=== PATIENT | female | born 1950 | race Caucasian/White ===

== ENCOUNTER 2020-05-07 09:21 | Outpatient (REF) | payer OTHER, SELFPAY ==
--- NOTE | 2020-05-18 11:29 | XR_ITS ---
EXAMINATION: XR PELVIS CLINICAL INFORMATION: Pain COMPARISON: 04/04/2019 TECHNIQUE: Pelvis, AP view FINDINGS: The osseous pelvic ring is intact. Alignment is normal at the pubic symphysis, hips and sacroiliac joints. No focal lytic or osteoblastic lesion. The components of the noncemented right total hip arthroplasty are in stable position. There is approximately 60 degrees of lateral version of the acetabular cup, unchanged compared to 04/04/2019. The femoral head prosthesis is well centered within the acetabular cup. No abnormal lucency or fracture around the femoral component. At the left hip, there is chronic loss of superior joint space, subarticular sclerosis, subarticular cystic change, osteophyte formation and mild cortical buttressing of the medial femoral neck. XR/XR pelvis 1-2V IMPRESSION: * The components of the right total hip arthroplasty are in stable position compared to 04/04/2019. No periprosthetic fracture. No osteolysis around the hardware. * Chronic [id number] osteoarthritis of the left hip.
== END 2020-05-07 09:22 | disposition home or self-care (01) ==
LOC: HO.HOSX 09:21
PROVIDERS: Visit Provider Orthopaedic Surgery
DX: Z13.89 Encounter for screening for other disorder (principal)

== ENCOUNTER → 2020-05-18 11:09 | Outpatient (BNVA) | payer OTHER, SELFPAY | PROVIDERS: Visit Provider Orthopaedic Surgery | DX: M16.12 Unilateral primary osteoarthritis, left hip (principal) | CPT/HCPCS: 72170; 99212 ==

== ENCOUNTER → 2020-07-20 12:48 | Outpatient (BNVA) | payer OTHER, SELFPAY | PROVIDERS: Visit Provider Orthopaedic Surgery ==

== ENCOUNTER → 2020-08-13 09:14 | Outpatient (BNVA) | payer OTHER, SELFPAY | PROVIDERS: Visit Provider Physician Assistant | DX: M16.12 Unilateral primary osteoarthritis, left hip (principal) | CPT/HCPCS: 99212 ==

== ENCOUNTER 2020-08-18 06:03 | Inpatient (IN) | payer OTHER, SELFPAY ==
--- NOTE | 2020-08-14 12:17 | P.CONAN_ITS ---
Documented by User: Alesia Solorio 08/17/20 09:31 HPI - Anesthesia Eval Consult details Narrative: 70yo F for Left Hip Total Replacement Anxiety about entering OR - requesting midaz s/p R ANKIT with [facility]T 7 03/2018 PCP cleared Pending: T&S EKG PMFSH Active Problems Active Problems: All Active Problems (Updated 08/13/20 @ 10:21 by Francisca Do PA-C) Osteoarthritis of left hip (Acute) Past Medical History Medical History Anxiety Arthritis Depressive disorder Low back pain Lyme disease Family History Family history of problems with anesthesia: No Surgical History Surgical History History of cataract removal with insertion of prosthetic lens History of tooth extraction History of total right hip arthroplasty (~03/27/18) History of Problems with Anesthesia: No Social History Social History Are you a primary manager long term care to a significant other at home: No Do you presently have visiting nurse or other home services: No Smoking Status: Never smoker Use of substances other than those prescribed or required for medical reasons: No Have you been hit, kicked, punched, or otherwise hurt by someone within the past year? If so, by whom?: No Spiritual Healthcare Practices: none Mormonism Healthcare Practices: prayer Cultural Healthcare Practices: none Are you DNR?: No Advance Directives: No Advance Directives Information Provided: No Advance Directives on File: No Recently lost weight without trying: No Narrative Narrative: No recent illness Acitivity limited to pain - no CP/SOB at rest Meds Allergies Allergy/AdvReac Type Severity Reaction Status Date / Time latex [LATEX] Allergy Unknown RASH Verified 08/14/20 12:15 Home Medications Medication Instructions Recorded Confirmed Last Taken Type amitriptyline 50 mg tablet 50 mg PO BEDTIME 07/20/20 08/14/20 Unknown History diazepam 5 mg tablet 5 mg PO DAILY PRN 07/20/20 08/14/20 08/18/20 History paroxetine HCl 20 mg tablet 20 mg PO DAILY 07/20/20 08/14/20 08/18/20 History Exam Exam Date and Time: August 14, 2020 121 Pertinent Lab Results Pertinent Lab Results: Lab Results 08/14/20 08/14/20 08/14/20 Range/Units 13:35 13:35 13:35 WBC 9.3 (4.8-10.8) X10*3/uL RBC 4.67 (4.20-5.50) X10*6/uL Hgb 13.6 (12.0-16.0) g/dl Hct 41.6 (37-47) % MCV 89.1 (80-98) fL MCH 29.1 (27.0-33.0) pg MCHC 32.7 (31.0-35.0) g/dl RDW 13.2 (11.0-16.0) % Plt Count 290 (160-400) X10*3/uL MPV 10.4 (9.4-12.3) fL Immature Gran % (Auto) 0.3 (0.0-0.4) % Neut % (Auto) 69.7 (45-73) % Lymph % (Auto) 20.8 (20-40) % [place] % (Auto) 7.7 (2-11) % Eos % (Auto) 1.1 (0-4) % Baso % (Auto) 0.4 (0-2) % Lymph # (Auto) 1.9 (1.2-4.9) X10*3/uL [place] # (Auto) 0.7 (0.1-1.2) X10*3/uL Eos # (Auto) 0.1 (0.0-0.4) X10*3/uL Baso # (Auto) 0.0 (0.0-0.2) X10*3/uL Abs Immat Gran (auto) 0.03 (0.00-0.03) X10*3/uL Absolute Neuts (auto) 6.5 (2.0-8.3) X10*3/uL Absolute Nucleated RBC 0.000 (0.0-0.012) X10*3/uL Nucleated RBC % (auto) 0.0 (0.0-0.2) /100WBC Sodium 138 (135-145) mmol/L Potassium 4.4 (3.3-5.1) mmol/L Chloride 105 (96-108) mmol/L Carbon Dioxide 24 (22-29) mmol/L Anion Gap 13 (12-20) BUN 17 H (9-16) mg/dL Creatinine 0.79 (0.5-1.4) mg/dL Estim Creat Clear Calc 78.1 Estimated GFR > 60 Random Glucose 99 (60-115) mg/dL Calcium 10.2 (8.4-10.2) mg/dL Nasal Screen MRSA (PCR) (Negative) Nasal S. aureus Screen (Negative) Nasal MRSA/S.aureus Interp Blood Type O Positive Antibody Screen NEGATIVE 08/14/20 Range/Units Unknown WBC (4.8-10.8) X10*3/uL RBC (4.20-5.50) X10*6/uL Hgb (12.0-16.0) g/dl Hct (37-47) % MCV (80-98) fL MCH (27.0-33.0) pg MCHC (31.0-35.0) g/dl RDW (11.0-16.0) % Plt Count (160-400) X10*3/uL MPV (9.4-12.3) fL Immature Gran % (Auto) (0.0-0.4) % Neut % (Auto) (45-73) % Lymph % (Auto) (20-40) % [place] % (Auto) (2-11) % Eos % (Auto) (0-4) % Baso % (Auto) (0-2) % Lymph # (Auto) (1.2-4.9) X10*3/uL [place] # (Auto) (0.1-1.2) X10*3/uL Eos # (Auto) (0.0-0.4) X10*3/uL Baso # (Auto) (0.0-0.2) X10*3/uL Abs Immat Gran (auto) (0.00-0.03) X10*3/uL Absolute Neuts (auto) (2.0-8.3) X10*3/uL Absolute Nucleated RBC (0.0-0.012) X10*3/uL Nucleated RBC % (auto) (0.0-0.2) /100WBC Sodium (135-145) mmol/L Potassium (3.3-5.1) mmol/L Chloride (96-108) mmol/L Carbon Dioxide (22-29) mmol/L Anion Gap (12-20) BUN (9-16) mg/dL Creatinine (0.5-1.4) mg/dL Estim Creat Clear Calc Estimated GFR Random Glucose (60-115) mg/dL Calcium (8.4-10.2) mg/dL Nasal Screen MRSA (PCR) NEGATIVE (Negative) Nasal S. aureus Screen NEGATIVE (Negative) Nasal MRSA/S.aureus Interp SEE NOTE Blood Type Antibody Screen Narrative Narrative: EKG 08/14/20 Vent. Rate : 100 BPM Atrial Rate : 100 BPM P-R Int : 184 ms QRS Dur : 080 ms QT Int : 310 ms P-R-T Axes : 064 003 139 degrees QTc Int : 399 ms Normal sinus rhythm Possible Left atrial enlargement Nonspecific ST and T wave abnormality Abnormal ECG When compared with ECG of 13-MAR-2018 11:59, No significant change was found Airway Mallampati Class: I TM Dist: >3cm Neck ROM: Full Loose/Missing/Broken Teeth: Yes (Perm bridge left lower molars, R lower molars extracted) Heart: RR tachy Lungs: CTAB Assessment and Plan Assessment Anesthesia Assessment: Anesthesia Plan Discussed and PAT Visit Documented by User: Kiesha Bowie 08/18/20 08:11 [facility] Past Medical History Medical History Anxiety Arthritis Depressive disorder Low back pain Lyme disease Surgical History Surgical History History of cataract removal with insertion of prosthetic lens History of tooth extraction History of total right hip arthroplasty (~03/27/18) Social History Social History Are you a primary manager long term care to a significant other at home: No Do you presently have visiting nurse or other home services: No Smoking Status: Never smoker Use of substances other than those prescribed or required for medical reasons: No Have you been hit, kicked, punched, or otherwise hurt by someone within the past year? If so, by whom?: No Spiritual Healthcare Practices: none Mormonism Healthcare Practices: prayer Cultural Healthcare Practices: none Are you DNR?: No Advance Directives: No Advance Directives Information Provided: No Advance Directives on File: No Recently lost weight without trying: No Meds Allergies Allergy/AdvReac Type Severity Reaction Status Date / Time latex [LATEX] Allergy Unknown RASH Verified 08/14/20 12:15 Home Medications Medication Instructions Recorded Confirmed Last Taken Type amitriptyline 50 mg tablet 50 mg PO BEDTIME 07/20/20 08/14/20 Unknown History diazepam 5 mg tablet 5 mg PO DAILY PRN 07/20/20 08/14/20 08/18/20 History paroxetine HCl 20 mg tablet 20 mg PO DAILY 07/20/20 08/14/20 08/18/20 History Exam Height,Weight and Vital Signs: Vital Signs Temp Pulse Resp BP Pulse Ox 08/18/20 06:48 98.4 F 103 H 16 163/83 H 97 Pertinent Lab Results Pertinent Lab Results: Laboratory Results - last 24 hr 08/18/20 06:11 COVID-19 (ARGENIS) Negative COVID-19 Clin Com See Note Airway Mallampati Class: II TM Dist: >3cm Loose/Missing/Broken Teeth: No (Abnormal position of tooth top left) Heart: RRR Lungs: CTAB Assessment and Plan Assessment Anesthesia Assessment: Anesthesia Plan Discussed and Chart Reviewed Final Anesthetic Review NPO: Yes ASA Class: II Final Preanesthetic Review: No Changes in Pt Med Stat, Meds/Allgs Chart Reviewed, Consent Obtained/Reviewed and Anes Risks/Benef Reviewed Patient Risk: Low Procedure Risk: Intermediate Assessment/Block/Sedation in SS: Assess/Block/Sedation-SS Anesthetic Plan Anesthetic Plan: GA Disposition: Inp. Admit - Standard Bed
[2020-08-14 12:27] VITALS: BMI 29.3
[2020-08-14 12:53] VITALS: BP 140/80; PULSE 100; RESP 16; O2SAT 96
--- NOTE | 2020-08-14 13:19 | ECG_ITS ---
Test Reason : PREOP Blood Pressure : / mmHG Vent. Rate : 100 BPM Atrial Rate : 100 BPM P-R Int : 184 ms QRS Dur : 080 ms QT Int : 310 ms P-R-T Axes : 064 003 139 degrees QTc Int : 399 ms Normal sinus rhythm Possible Left atrial enlargement Nonspecific ST and T wave abnormality Abnormal ECG When compared with ECG of 13-MAR-2018 11:59, No significant change was found Referred By: Valdemar De Santiago Electronically Signed By:HANNAH HE MD
[2020-08-14 14:02] LABS: MANUAL DIFF FLAG NO
[2020-08-14 14:13] LABS: Basophils Percent Auto 0.4 % (0-2); Eosinophils Absolute Auto 0.1 X10*3/uL (0.0-0.4); Eosinophils Percent Auto 1.1 % (0-4); Hematocrit 41.6 % (37-47); Hemoglobin 13.6 g/dl (12.0-16.0); Imm Gran Abs Auto 0.03 X10*3/uL (0.00-0.03); Imm Gran Pct Auto 0.3 % (0.0-0.4); Lymphocytes Absolute Auto 1.9 X10*3/uL (1.2-4.9); Lymphocytes Percent Auto 20.8 % (20-40); Mean Corpuscular HGB Conc 32.7 g/dl (31.0-35.0); Mean Corpuscular Hemoglobin 29.1 pg (27.0-33.0); Mean Corpuscular Volume 89.1 fL (80-98); Mean Platelet Volume 10.4 fL (9.4-12.3); Monocytes Absolute Auto 0.7 X10*3/uL (0.1-1.2); Monocytes Percent Auto 7.7 % (2-11); Neutrophils Absolute Auto 6.5 X10*3/uL (2.0-8.3); Neutrophils Percent Auto 69.7 % (45-73); Platelet Count 290 X10*3/uL (160-400); Red Blood Count 4.67 X10*6/uL (4.20-5.50); Red Cell Distribution Width 13.2 % (11.0-16.0); White Blood Count 9.3 X10*3/uL (4.8-10.8)
[2020-08-14 14:26] LABS: Anion Gap 13 (12-20); Blood Urea Nitrogen 17 mg/dL (9-16); Calcium 10.2 mg/dL (8.4-10.2); Carbon Dioxide 24 mmol/L (22-29); Chloride 105 mmol/L (96-108); Creatinine Clr Calc Pharmacy 78.1; Estimated Glomerular Filt Rate > 60; Glucose Random 99 mg/dL (60-115); Potassium 4.4 mmol/L (3.3-5.1); Sodium 138 mmol/L (135-145)
[2020-08-14 14:49] LABS: MRSA Nasal PCR NEGATIVE (Negative); SA Nasal PCR NEGATIVE (Negative)
[2020-08-18] VITALS (14 sets, daily range): BP systolic 97–163; BP diastolic 56–83; PULSE 88–103; RESP 12–20; TEMP 36.2–37.4; O2SAT 91–97
--- NOTE | ~2020-08-18 | XR_ITS ---
EXAMINATION: XR PELVIS CLINICAL INFORMATION: Left total hip COMPARISON: AP pelvis 05/18/2020 TECHNIQUE: AP view of the pelvis. FINDINGS: There is old right hip prosthesis in satisfactory alignment. There is a new left total hip prosthesis in satisfactory alignment. Immediate postop changes are seen along the lateral hip. The soft tissues are normal. XR/XR pelvis 1-2V IMPRESSION: Left total hip prosthesis in alignment. There are immediate postop changes seen. The right hip prosthesis is unremarkable and unchanged to 05/18/2020.
[2020-08-18] MEDS: Gabapentin 600 MG TABLET PO (06:43)
[2020-08-18] MEDS: oxyCODONE HCl ER 10 MG TAB.ER.12H PO ×2 (06:43→20:31)
[2020-08-18 07:01] LABS: COVID-19 Test Negative (Negative); IDNOW Serial# 9DD0AD1C
[2020-08-18] MEDS: Lactated Ringers 1,000 ML 100 ML IVCONT (07:15)
--- NOTE | 2020-08-18 07:17 | MHC.SHP ---
Pre-Procedural Eval Section A The patient is an INPATIENT: No Changes since office visit: No Cold of Flu in the past 2 weeks, No New Medical Problems, No Changes in Medication and No Patient answered all questions The History & Physical has been completed within 30 days and I have reviewed it.: Yes Section B Chief Complaint: Osteoarthritis Allergies: Allergies Allergy/AdvReac Type Severity Reaction Status Date / Time latex [LATEX] Allergy Unknown RASH Verified 08/14/20 12:15 Plan I have reviewed the history and physical and performed a pertinent physical examination on my patient. No changes have occurred unless specified.
--- NOTE | 2020-08-18 09:12 | P.BOP_ITS ---
Brief Operative Note Date of Service: 08/18/20 Pre-op diagnosis: left hip OA Post-op diagnosis: same Procedure: left ANKIT Implants: [place] trident2 54/20 deg lip; accolade2 #6 132 36 +2.5 ceramic Surgeon: Valdemar De Santiago MD Anesthesia: GETA and local Was an Criminal Justice Lawyer used for this Procedure?: Yes Criminal Justice Lawyer: Francisca Do Estimated blood loss (mL): 250 IV fluids (mL): 900 Pathology: other Condition: stable Disposition: PACU
--- NOTE | 2020-08-18 09:15 | P.OP_ITS ---
Operative Note Operative Note Date of Service: 08/18/20 Narrative: Date of Service: 08/18/20 Pre-op diagnosis: left hip OA Post-op diagnosis: same Procedure: left ANKIT Implants: [place] trident2 54/20 deg lip; accolade2 #6 132 36 +2.5 ceramic Surgeon: Valdemar De Santiago MD Anesthesia: GETA and local Was an Ice Platform Supervisor used for this Procedure?: Yes Ice Platform Supervisor: Francisca Do Estimated blood loss (mL): 250 IV fluids (mL): 900 Pathology: other Condition: stable Disposition: PACU Procedure in detail: Patient was brought into the operating room and placed in a right lateral decubitus position. All bony prominences were well padded and the limb was prepped and draped in standard sterile fashion. Time-out was called to identify proper site procedure proper surgeon IV antibiotics and 1 g of trans to make acid were administered. I began by making a curvilinear incision over the posterolateral aspect of the greater trochanter. Dissection was taken down to the tensor fascia which was incised in line with the incision and a Charnley retractor was placed. Hip was internally rotated and the external rotators were identified. The vessels were cauterized and a full-thickness capsular/external rotator layer was developed starting just proximal to the piriformis. Dull Hohmann retractor was placed underneath the neck and the hip was dislocated. The head was eburnated. A neck cut was made 1 cm proximal to the lesser trochanter and the head and neck were removed and measured on the back table. I placed my anterior-posterior acetabular retractors and performed a labrectomy. I then removed the foveal tissue and starting with a 44 reamer I reamed to the inner table and then sequentially reamed up to a size _54__ and impacted a __54__ cup at approximately 45 degrees of inclination and 25 degrees of version. I then placed a 20 degree posterior lipped liner and turned my attention to the femur. All I used cautery to identify the piriformis start site and used this as a starting point for my guanakito cutter. I then used a Charnley awl to identify the canal and a curved curette to remove the lateral bone. I then sequentially broached in the patient's natural version to a size __6/132deg__ . The identical implants were used in the contralateral hip. I then placed my trial implants. I took the hip through range of motion with a +0 head and + 2.5 head. I was satisfied with the stability and length. Therefore removed all instrumentation copiously irrigated placed my final femoral implant. I again took the hip through range of motion and was happy with the stability and length using a +2.5 head and so my final femoral head was placed. I then irrigated for 3 minutes with iodine and placed 1 g of local TXA. I then performed a capsular closure with FiberWire, Los's fascia with 0 Vicryl, subcuticular with 2-0 vicryl and skin with raulito. Patient was placed into a sterile dressing. Radiographs were obtained at the completion of the case and I was happy with the component position. Patient was extubated brought to the recovery room in stable condition.
--- NOTE | 2020-08-18 11:41 | P.CONIM_ITS ---
History of Present Illness Data of Consult Service Date: 08/18/20 Requesting physician: Valdemar De Santiago Primary Care Provider: Vamsi Loco MD [facility] Reason for consult: Medical management 70-year-old woman admitted by Orthopedic surgery. Surgery was unremarkable. Vital signs are stable. Blood pressure is on the softer side. Patient has a minimal amount of pain at this time. Pre-op labs within acceptable limits. She has no acute medical complaints at this time. Medical consultation was placed for medical management. Review of Systems Review of Systems: Denies any recent fever chills or decrease in appetite respiratory denies any shortness of breath coverage production cardiovascular is adjustment of any PND or edema gastrointestinal denies any dysphagia abdominal pain nausea vomiting or diarrhea genitourinary denies any dysuria frequency or hematuria musculoskeletal Minimal pain neuropsych denies any weakness or seizures all other systems reviewed are negative [facility] Medical History Anxiety Arthritis Depressive disorder Low back pain Lyme disease Surgical History History of cataract removal with insertion of prosthetic lens History of tooth extraction History of total right hip arthroplasty (~03/27/18) Social History Are you a primary pet care attendant to a significant other at home: No Do you presently have visiting nurse or other home services: No Smoking Status: Never smoker Use of substances other than those prescribed or required for medical reasons: No Currently Displaying Signs/Symptoms of Drug Intoxication Withdrawal: No Have you been hit, kicked, punched, or otherwise hurt by someone within the past year? If so, by whom?: No Spiritual Healthcare Practices: none [employer] Healthcare Practices: prayer Cultural Healthcare Practices: none Are you DNR?: No Advance Directives: No Advance Directives Information Provided: No Advance Directives on File: No Do you have thoughts of harming others: None Do you have a plan to hurt others: No Plan Recently lost weight without trying: No service: No Current occupational status: retired Meds Allergies Allergy/AdvReac Type Severity Reaction Status Date / Time latex [LATEX] Allergy Unknown RASH Verified 08/14/20 12:15 Active Medications: Current Medications Generic Name Dose Route Start Last Admin Trade Name Freq PRN Reason Stop Dose Admin Acetaminophen 650 mg 08/18/20 11:37 Acetaminophen 325 Mg Tablet PO Q6H PRN Pain, Mild (Pain Scale 1-3) Aspirin 325 mg 08/19/20 09:00 Aspirin 325 Mg Tablet PO BID [facility] Celecoxib 200 mg 08/18/20 21:00 Celecoxib 200 Mg Capsule PO BID [facility] Docusate Sodium 100 mg 08/18/20 21:00 Docusate Sodium 100 Mg Capsule PO BID [facility] Hydromorphone HCl 0.25 mg 08/18/20 11:37 Hydromorphone Hcl 0.5 Mg/0.5 Ml Syringe IVPUSH Q4H PRN Pain, Severe (Pain Scale 7-10) Dextrose/Sodium Chloride 1,000 mls @ 80 mls/hr 08/18/20 11:37 D51/2ns IVCONT .[id number] [facility] Cefazolin Sodium/Dextrose 2 gm in 50 mls @ 100 mls/hr 08/18/20 11:37 Ancef IV 08/18/20 12:06 POSTOP ONE Naloxone HCl 0.2 mg 08/18/20 11:37 Naloxone Hcl 0.4 Mg/Ml Vial IVPUSH Q2M PRN Excessive sedation or RR < 8 Ondansetron HCl 4 mg 08/18/20 11:37 Ondansetron Hcl 4 Mg/2 Ml Vial IVPUSH Q8H PRN Nausea and Vomiting Oxycodone HCl 10 mg 08/18/20 11:37 Oxycodone Hcl Immed Release 5 Mg Tablet PO Q4H PRN Pain, Moderate (Pain Scale 4-6 Oxycodone HCl 10 mg 08/18/20 21:00 Oxycodone Hcl Er 10 Mg Tab.Er.12h PO BID [facility] Sodium Chloride 3 ml 08/18/20 16:00 0.9 % Sodium Chloride Flush 3 Ml Syringe IVFLUSH QSHIFT [facility] Home Medications Medication Instructions Recorded Confirmed Last Taken Type amitriptyline 50 mg tablet 50 mg PO BEDTIME 07/20/20 08/14/20 Unknown History diazepam 5 mg tablet 5 mg PO DAILY PRN 07/20/20 08/14/20 08/18/20 History paroxetine HCl 20 mg tablet 20 mg PO DAILY 07/20/20 08/14/20 08/18/20 History Physical Exam Vital Signs and Narrative: Vital Signs: Last Vital Signs Temp 98.6 F 08/18/20 09:38 Pulse 88 08/18/20 11:25 Resp 16 08/18/20 11:25 BP 115/64 08/18/20 11:25 Pulse Ox 97 08/18/20 11:25 Body Mass Index 29.3 Appearing in no acute distress head is normocephalic atraumatic eyes pupils are PERRLA sclera is anicteric mouth throat mucous membranes are intact and moist neck is supple no lymphadenopathy, no JVD noted lung sounds are clear to auscultation heart regular rate rhythm, clear S1, S2 positive bowel sounds, abdomen is soft, nontender neuro patient is alert x3, no focal deficits Results Labs CBC and Chem 7: 08/19/20 05:45 08/19/20 05:45 Labs: Laboratory Results - last 24 hr 08/18/20 06:11 COVID-19 (ARGENIS) Negative COVID-19 Clin Com See Note Imaging Radiologist's Impressions: Impressions Pelvis X-Ray 08/18/20 07:29 IMPRESSION: Left total hip prosthesis in alignment. There are immediate postop changes seen. The right hip prosthesis is unremarkable and unchanged to 05/18/2020. Assessment and Plan (1) Osteoarthritis of left hip: Status: Acute 70 year old women admitted by orthopedic surgery and is pre-op left total hip arthroplasty Left hip osteoarthritis. Plan for Left THR -Management as per surgical team -Pain management -follow post op labs Depression/Anxiety -Continue home medications. DVT prophylaxis with full dose aspirin Attending: Dr. Gomez
[2020-08-18] MEDS: HYDROmorphone HCl 0.5 MG/0.5 ML SYRINGE 0.25 MG IVPUSH (12:14)
[2020-08-18] MEDS: Dextrose 5 % and 0.45 % NaCl 1,000 ML 80 ML IVCONT ×2 (12:14→23:41)
[2020-08-18] MEDS: ceFAZolin Sodium/Dextrose,Iso 2 GM/50 ML PIGGYBACK IV (13:52)
[2020-08-18] MEDS: Acetaminophen 325 MG TABLET 650 MG PO (19:04)
[2020-08-18] MEDS: Docusate Sodium 100 MG CAPSULE PO (20:31)
[2020-08-18] MEDS: Celecoxib 200 MG CAPSULE PO (20:31)
[2020-08-19 03:39] VITALS: BP 101/64; PULSE 83; RESP 18; TEMP 36.8; O2SAT 97
[2020-08-19 06:08] LABS: MANUAL DIFF FLAG NO
[2020-08-19 06:45] LABS: Basophils Percent Auto 0.2 % (0-2); Eosinophils Percent Auto 0.2 % (0-4); Hematocrit 35.4 % (37-47); Hemoglobin 11.3 g/dl (12.0-16.0); Imm Gran Abs Auto 0.07 X10*3/uL (0.00-0.03); Imm Gran Pct Auto 0.5 % (0.0-0.4); Lymphocytes Absolute Auto 2.2 X10*3/uL (1.2-4.9); Lymphocytes Percent Auto 16.6 % (20-40); Mean Corpuscular HGB Conc 31.9 g/dl (31.0-35.0); Mean Corpuscular Hemoglobin 29.1 pg (27.0-33.0); Mean Corpuscular Volume 91.2 fL (80-98); Mean Platelet Volume 10.7 fL (9.4-12.3); Monocytes Absolute Auto 1.2 X10*3/uL (0.1-1.2); Monocytes Percent Auto 9.2 % (2-11); Neutrophils Absolute Auto 9.7 X10*3/uL (2.0-8.3); Neutrophils Percent Auto 73.3 % (45-73); Platelet Count 243 X10*3/uL (160-400); Red Blood Count 3.88 X10*6/uL (4.20-5.50); Red Cell Distribution Width 13.2 % (11.0-16.0); White Blood Count 13.2 X10*3/uL (4.8-10.8)
[2020-08-19 06:54] LABS: Anion Gap 11 (12-20); Blood Urea Nitrogen 12 mg/dL (9-16); Calcium 9.5 mg/dL (8.4-10.2); Carbon Dioxide 27 mmol/L (22-29); Chloride 104 mmol/L (96-108); Creatinine Clr Calc Pharmacy 88.1; Estimated Glomerular Filt Rate > 60; Glucose Fasting 131 mg/dL (60-99); Potassium 4.5 mmol/L (3.3-5.1); Sodium 137 mmol/L (135-145)
[2020-08-19 07:12] VITALS: BP 122/64; PULSE 94; RESP 19; TEMP 36.2; O2SAT 96
--- NOTE | 2020-08-19 07:36 | P.PNOP_ITS ---
Subjective Subjective Date of Service: 08/19/20 Interval history: POD1 s/p LTHA 08/18/[address] De Santiago. No overnight events. Pain is well managed. Patient states that she felt the Oxycodone 10mg was more than she needs. We will reduce her to Oxycodone 5mg. Denies SOB, chest pain, dizziness. Physical Exam Vital Signs: Vital Signs: Last Vital Signs Temp 97.2 F 08/19/20 07:12 Pulse 94 08/19/20 07:12 Resp 19 08/19/20 07:12 BP 122/64 08/19/20 07:12 Pulse Ox 96 08/19/20 07:12 Body Mass Index 29.3 Const: General: cooperative, healthy appearing and no acute distress Resp: Effort & Inspection: normal respiratory effort and able to speak in complete sentences Cardio: Rate: regular rate Peripheral pulses: Peripheral pulses 2+ throughout GI: Palpation (GI): Soft to palpation Skin: Lesions: no lesions Rashes: no rashes Extrem: Other: Left hip no ecchymosis, redness, or ecchymosis. Aquacel is clean, dry, and intact. NVI. Progress Note: A&P Assessment and plan (1) S/P total hip arthroplasty: Status: Acute Assessment and Plan: Continue pain mgmnt Begin ASA for dvt ppx Continue PT for LTHA Dispo planning-PT and pain mgmnt Fall Risk Details Current Medications: Current Medications Generic Name Dose Route Start Last Admin Trade Name Freq PRN Reason Stop Dose Admin Acetaminophen 650 mg 08/18/20 11:37 08/18/20 19:04 Acetaminophen 325 Mg Tablet PO 650 mg Q6H PRN Administration Pain, Mild (Pain Scale 1-3) Aspirin 325 mg 08/19/20 09:00 Aspirin 325 Mg Tablet PO BID FRANDY Celecoxib 200 mg 08/18/20 21:00 08/18/20 20:31 Celecoxib 200 Mg Capsule PO 200 mg BID FRANDY Administration Docusate Sodium 100 mg 08/18/20 21:00 08/18/20 20:31 Docusate Sodium 100 Mg Capsule PO 100 mg BID FRANDY Administration Hydromorphone HCl 0.25 mg 08/18/20 11:37 08/18/20 12:14 Hydromorphone Hcl 0.5 Mg/0.5 Ml Syringe IVPUSH 0.25 mg Q4H PRN Administration Pain, Severe (Pain Scale 7-10) Naloxone HCl 0.2 mg 08/18/20 11:37 Naloxone Hcl 0.4 Mg/Ml Vial IVPUSH Q2M PRN Excessive sedation or RR < 8 Ondansetron HCl 4 mg 08/18/20 11:37 Ondansetron Hcl 4 Mg/2 Ml Vial IVPUSH Q8H PRN Nausea and Vomiting Oxycodone HCl 10 mg 08/18/20 11:37 Oxycodone Hcl Immed Release 5 Mg Tablet PO Q4H PRN Pain, Moderate (Pain Scale 4-6 Oxycodone HCl 10 mg 08/18/20 21:00 08/18/20 20:31 Oxycodone Hcl Er 10 Mg Tab.Er.12h PO 10 mg BID FRANDY Administration Sodium Chloride 3 ml 08/18/20 16:00 08/18/20 23:40 0.9 % Sodium Chloride Flush 3 Ml Syringe IVFLUSH Not Given QSHIFT FRANDY Time Spent With Patient Time: Total time spent is greater than 50% in coordination of care (as do cumented) at patient's floor/unit and/or counseling patient: Time with patient: less than 15 minutes
[2020-08-19] MEDS: Aspirin 325 MG TABLET PO ×2 (08:46→20:27)
[2020-08-19] MEDS: Celecoxib 200 MG CAPSULE PO ×2 (08:46→20:28)
[2020-08-19] MEDS: oxyCODONE HCl ER 10 MG TAB.ER.12H PO ×2 (08:47→20:28)
[2020-08-19] MEDS: Docusate Sodium 100 MG CAPSULE PO ×2 (08:47→20:28)
--- NOTE | 2020-08-19 09:05 | MHC.CM.PN ---
pt lives c her in their home. she reports that she is independent in her care. driving a car and even riding her horse. she tells me that she had her R hip done 2 yrs ago so she knows what to expect. her can help her if she needs help, this will include a ride home at in. pt has requested [facility] to provide home PT as she reports that was the agency for home PT for the R hip. a ref. to [facility] has been done. pt also reports that she has a walker at home already. dc plan is home c [facility] for home PT. cm to cont. to follow.
--- NOTE | 2020-08-19 09:20 | HO.PM.IMPN ---
Subjective Subjective Date of Service: 08/19/20 <May Hammond NP - Last Filed: 08/19/20 09:26> 08/19/20 <Garrett Cantrell MD - Last Filed: 08/19/20 12:23> Interval History: Follow up consult. POD#1 No pain <May Hammond NP - Last Filed: 08/19/20 09:26> Physical Exam Vital Signs: Vital Signs: Last Vital Signs Temp 97.2 F 08/19/20 07:12 Pulse 94 08/19/20 07:12 Resp 19 08/19/20 07:12 BP 122/64 08/19/20 07:12 Pulse Ox 96 08/19/20 07:12 Body Mass Index 29.3 <May Hammond NP - Last Filed: 08/19/20 09:26> Appearing in no acute distress lung sounds are clear to auscultation heart regular rate rhythm, clear S1, S2 positive bowel sounds, abdomen is soft, nontender neuro patient is alert x3, no focal deficits Left hip dressing intact. surgical dressing on. incision not visualized <May Hammond NP - Last Filed: 08/19/20 09:26> Objective Data Current Medications Generic Name Dose Route Start Last Admin Trade Name Freq PRN Reason Stop Dose Admin Acetaminophen 650 mg 08/18/20 11:37 08/18/20 19:04 Acetaminophen 325 Mg Tablet PO 650 mg Q6H PRN Administration Pain, Mild (Pain Scale 1-3) Aspirin 325 mg 08/19/20 09:00 08/19/20 08:46 Aspirin 325 Mg Tablet PO 325 mg BID FRANDY Administration Celecoxib 200 mg 08/18/20 21:00 08/19/20 08:46 Celecoxib 200 Mg Capsule PO 200 mg BID FRANDY Administration Docusate Sodium 100 mg 08/18/20 21:00 08/19/20 08:47 Docusate Sodium 100 Mg Capsule PO 100 mg BID FRANDY Administration Hydromorphone HCl 0.25 mg 08/18/20 11:37 08/18/20 12:14 Hydromorphone Hcl 0.5 Mg/0.5 Ml Syringe IVPUSH 0.25 mg Q4H PRN Administration Pain, Severe (Pain Scale 7-10) Naloxone HCl 0.2 mg 08/18/20 11:37 Naloxone Hcl 0.4 Mg/Ml Vial IVPUSH Q2M PRN Excessive sedation or RR < 8 Ondansetron HCl 4 mg 08/18/20 11:37 Ondansetron Hcl 4 Mg/2 Ml Vial IVPUSH Q8H PRN Nausea and Vomiting Oxycodone HCl 10 mg 08/18/20 21:00 08/19/20 08:47 Oxycodone Hcl Er 10 Mg Tab.Er.12h PO 10 mg BID FRANDY Administration Oxycodone HCl 5 mg 08/19/20 07:40 Oxycodone Hcl Immed Release 5 Mg Tablet PO Q4H PRN Pain, Moderate (Pain Scale 4-6 Sodium Chloride 3 ml 08/18/20 16:00 08/19/20 08:46 0.9 % Sodium Chloride Flush 3 Ml Syringe IVFLUSH Not Given QSHIFT FRANDY <May Hammond NP - Last Filed: 08/19/20 09:26> Labs CBC & Chem 7: : 08/19/20 05:45 08/19/20 05:45 <May Hammond NP - Last Filed: 08/19/20 09:26> Assessment and Plan (1) S/P total hip arthroplasty: Status: Acute <May Hammond NP - Last Filed: 08/19/20 09:26> Assessment and Plan: 70 year old women admitted by orthopedic surgery and is pre-op left total hip arthroplasty Left hip osteoarthritis. POD# 1 -Management as per surgical team -Pain management -follow post op labs Leukocytosis. Post-op, no infection -follow CBC Depression/Anxiety -Continue home medications. DVT prophylaxis with full dose aspirin No acute medical issues, will sign off. Attending: Dr. Gomez <May Hammond NP - Last Filed: 08/19/20 09:26>
--- NOTE | 2020-08-19 10:00 | HO.POSTANES ---
Post Anesthesia Evaluation Post Anesthesia Evaluation Vital Signs: Vital Signs Temp Pulse Resp BP Pulse Ox 08/19/20 07:12 97.2 F 94 19 122/64 96 08/19/20 03:39 98.2 F 83 18 101/64 97 08/18/20 22:55 99.3 F 93 18 97/56 L 94 Anesthesia: General Mental Status: Awake Pain Control: Satisfactory Nausea/Vomiting: None Hydration: Adequate Anesthesia-Related Issues: No Anes. Related Issues
[2020-08-19 12:00] VITALS: BP 150/90; PULSE 83; RESP 16; TEMP 36.7; O2SAT 98
[2020-08-19 15:37] VITALS: BP 96/71; PULSE 99; RESP 16; TEMP 36.8; O2SAT 97
[2020-08-19] MEDS: 0.9 % Sodium Chloride Flush 3 ML SYRINGE IVFLUSH ×2 (16:20→20:28)
[2020-08-19] MEDS: PARoxetine HCL 20 MG TABLET PO (19:39)
[2020-08-19 19:49] VITALS: BP 104/62; PULSE 110; RESP 18; TEMP 37.2; O2SAT 98
[2020-08-19] MEDS: Amitriptyline HCl 50 MG TABLET PO (20:28)
[2020-08-20] VITALS: PULSE 96; RESP 16; TEMP 36.6; O2SAT 97
[2020-08-20 03:52] VITALS: BP 107/63; PULSE 96; RESP 16; TEMP 36.3; O2SAT 95
[2020-08-20 06:20] LABS: MANUAL DIFF FLAG NO
[2020-08-20 06:47] LABS: Anion Gap 10 (12-20); Basophils Percent Auto 0.3 % (0-2); Blood Urea Nitrogen 10 mg/dL (9-16); Calcium 9.2 mg/dL (8.4-10.2); Carbon Dioxide 26 mmol/L (22-29); Chloride 104 mmol/L (96-108); Creatinine Clr Calc Pharmacy 96.4; Eosinophils Absolute Auto 0.1 X10*3/uL (0.0-0.4); Eosinophils Percent Auto 0.8 % (0-4); Estimated Glomerular Filt Rate > 60; Glucose Fasting 125 mg/dL (60-99); Hematocrit 33.9 % (37-47); Imm Gran Abs Auto 0.05 X10*3/uL (0.00-0.03); Imm Gran Pct Auto 0.5 % (0.0-0.4); Lymphocytes Absolute Auto 1.7 X10*3/uL (1.2-4.9); Lymphocytes Percent Auto 15.6 % (20-40); Mean Corpuscular HGB Conc 32.4 g/dl (31.0-35.0); Mean Corpuscular Hemoglobin 28.9 pg (27.0-33.0); Mean Corpuscular Volume 89.2 fL (80-98); Mean Platelet Volume 10.4 fL (9.4-12.3); Monocytes Absolute Auto 1.1 X10*3/uL (0.1-1.2); Monocytes Percent Auto 10.4 % (2-11); Neutrophils Absolute Auto 7.8 X10*3/uL (2.0-8.3); Neutrophils Percent Auto 72.4 % (45-73); Platelet Count 219 X10*3/uL (160-400); Potassium 3.9 mmol/L (3.3-5.1); Red Cell Distribution Width 13.2 % (11.0-16.0); Sodium 136 mmol/L (135-145); White Blood Count 10.7 X10*3/uL (4.8-10.8)
--- NOTE | 2020-08-20 07:52 | P.DS_ITS ---
DS: Providers Provider Date of Service: 08/20/20 Date of admission: 08/18/20 06:03 Primary care physician: Vamsi Loco MD Consults: 08/18/20 11:37 Consult to Hospitalist Routine Consulting Provider: Hospitalist Reason For Exam: post op medical managment DS: Diagnosis Discharge Diagnosis (1) Osteoarthritis of left hip: Status: Acute Problem details: This is a 70-year-old female who presented to the office with left hip pain. She was found have osteoarthritis of the left hip. She had failed all conservative treatment and continued to have difficulty with ambulation and daily activities therefore she consented to move forward with left total hip arthroplasty. DS: Medications Discharge Medications Home Medications: Home Medications Medication Instructions Recorded Confirmed amitriptyline 50 mg tablet 50 mg PO BEDTIME 07/20/20 08/14/20 diazepam 5 mg tablet 5 mg PO DAILY PRN 07/20/20 08/14/20 paroxetine HCl 20 mg tablet 20 mg PO DAILY 07/20/20 08/14/20 Previous Rx's Medication Instructions Recorded acetaminophen 650 mg PO Q6H PRN 30 Days #240 tab 08/19/20 aspirin 325 mg PO BID 42 Days #84 tab 08/19/20 oxycodone 5 mg PO Q4H PRN 7 Days #42 tab 08/20/20 DS: Summary Hospital Course Hospital Course: The patient underwent a successful left total hip arthroplasty, was transferred to PACU and then to the floor to recover. During their stay, their vitals were stable, afebrile at 97.3. Labs were unremarkable, H/H 11.0/33.9 . POD 1 she was started on aspirin for DVT ppx, they also received services twice a day. Prior to discharge, their dressing was change, incision clean dry and intact, new Aquacel dressing applied and the plan was to be discharged home with VNA services Time Spent with Patient Time attestation: Total time spent providing and/or coordinating discharge services: Discharge coordination time: Less than 30 minutes Physical Exam Vital Signs: Vital Signs: Last Vital Signs Temp 97.3 F 08/20/20 03:52 Pulse 96 08/20/20 03:52 Resp 16 08/20/20 03:52 BP 107/63 08/20/20 03:52 Pulse Ox 95 08/20/20 03:52 Body Mass Index 29.3 Const: General: cooperative, healthy appearing and no acute distress Resp: Effort & Inspection: normal respiratory effort and able to speak in complete sentences Cardio: Rate: regular rate Peripheral pulses: Peripheral pulses 2+ throughout GI: Palpation (GI): Soft to palpation Skin: General skin exam: no rashes or lesions noted Extrem: Other: Left hip incision clean dry and intact. [place] intact. No erythema or effusion. Calf supple nontender. Neurovascularly intact. DS: Data Data Completed and Pending Completed studies during hospitalization [Text1]: Pending at discharge 08/18/20 08:39 Surgical [PTH] Routine Labs on day of discharge: Laboratory Results - last 24 hr 08/20/20 08/20/20 05:51 05:51 WBC 10.7 RBC 3.80 L Hgb 11.0 L Hct 33.9 L MCV 89.2 MCH 28.9 MCHC 32.4 RDW 13.2 Plt Count 219 MPV 10.4 Immature Gran % (Auto) 0.5 H Neut % (Auto) 72.4 Lymph % (Auto) 15.6 L [place] % (Auto) 10.4 Eos % (Auto) 0.8 Baso % (Auto) 0.3 Lymph # (Auto) 1.7 [place] # (Auto) 1.1 Eos # (Auto) 0.1 Baso # (Auto) 0.0 Abs Immat Gran (auto) 0.05 H Absolute Neuts (auto) 7.8 Absolute Nucleated RBC 0.000 Nucleated RBC % (auto) 0.0 Sodium 136 Potassium 3.9 Chloride 104 Carbon Dioxide 26 Anion Gap 10 L BUN 10 Creatinine 0.64 Estim Creat Clear Calc 96.4 Estimated GFR > 60 Fasting Glucose 125 H Calcium 9.2 Discharge Plan Discharge Patient Disposition: Home Health Service Discharge Diagnosis: s/p lt sanjay Referrals: Francisca Do PA-C [Physician [facility]] - 1 Week (09/09/20 1:00 [facility] Francisca Do PA-C) Discharge Medications: New aspirin 325 mg Tablet 325 mg PO BID 42 Days Qty: 84 RF: 0 acetaminophen 325 mg Tablet 650 mg PO Q6H PRN (Reason: Pain, Mild (Pain Scale 1-3)) 30 Days Qty: 240 RF: 0 oxycodone 5 mg Tablet 5 mg PO Q4H PRN (Reason: Pain, Moderate (Pain Scale 4-6) 7 Days Qty: 42 RF: 0 Continued diazepam 5 mg tablet 5 mg PO DAILY PRN (Reason: Anxiety) RF: 0 paroxetine HCl 20 mg tablet 20 mg PO DAILY RF: 0 amitriptyline 50 mg tablet 50 mg PO BEDTIME RF: 0 Discharge Orders: Discharge Order (Routine); Ordered 08/20/20 Ordered By: Francisca Do Diet: regular diet Activity on Discharge: Use cane or walker Stand Alone Forms: Patient Portal Discharge page Care Plan Goals: Restore function of joint Health Concerns: None Plan of Treatment: Physical Therapy Pain management DVT prophylaxis Assessment: * Physical Therapy for Total hip arthroplasty: posterior precautions, gait training, ROM, strength * Limit stair climbing * No showering, no tub bath-keep dressing clean, dry and intact * No driving x6 weeks * Continue Lovenox tabs once a day x 4 weeks * Follow up with [facility] [place] [facility] in 2 weeks
[2020-08-20 08:00] VITALS: BP 113/64; PULSE 100; RESP 18; TEMP 36.3; O2SAT 92
--- NOTE | 2020-08-20 08:21 | MHC.CM.PN ---
Addendum entered by Alessandra Mcmahan 08/20/20 08:22: CORRECTION ; PATIENT WILL RETURN HOME WITH [facility]. Original Note: PATIENT IS DISCHARGED HOME WITH NO NEED FOR SERVICES. RN AWARE OF PLAN.
[2020-08-20] MEDS: Docusate Sodium 100 MG CAPSULE PO (08:37)
[2020-08-20] MEDS: PARoxetine HCL 20 MG TABLET PO (08:37)
[2020-08-20] MEDS: oxyCODONE HCl ER 10 MG TAB.ER.12H PO (08:37)
[2020-08-20] MEDS: Celecoxib 200 MG CAPSULE PO (08:37)
[2020-08-20] MEDS: Aspirin 325 MG TABLET PO (08:37)
[2020-08-20] MEDS: 0.9 % Sodium Chloride Flush 3 ML SYRINGE IVFLUSH (08:38)
--- NOTE | 2020-08-20 08:51 | W.MHC.F2F ---
Service Date Service Date: 08/20/20 Reasons for Services Reason for physical therapy: home safety and mobility, therapeutic exercises, restore joint function, gait/transfer training, assess need for DME and ADL training Reason for occupational therapy: home safety and mobility, therapeutic exercises, restore joint function, gait/transfer training, assess need for DME and ADL training MD Overseeing Care: Valdemar De Santiago Homebound: Leaving the home is medically contraindicated at this time without the asist of a device and/or another person due th the listed conditions above and below. Homebound supporting statement: Pt. is considered home bound due to recent surgery. Unable to drive, poor balance, poor gait mechanics. Certification: Based on the above findings, I certify that this patient is confined to the home and needs intermittent [facility] care, physical therapy and/or speech therapy, or continues to need occupational therapy. The patient is under my care, and I have initiated the establishment of the plan of care. The patient will be followed by a physician who will periodically review the plan of care.
== END 2020-08-20 10:20 | disposition home health service (06) | DRG 470 ==
LOC: HO.SSSA 06:05 → HO.S3 10:41
PROVIDERS: Physician Assistant; Admitting Provider Orthopaedic Surgery; PCP Internal Medicine; Visit Provider Orthopaedic Surgery
PROC: 0SRB0JA Replacement of Left Hip Joint with Synthetic Substitute, Uncemented, Open Approach (ICD-10-PCS; CPT 27130; principal; 2020-08-18 07:30)
DX: M16.12 Unilateral primary osteoarthritis, left hip (principal); F41.9 Anxiety disorder, unspecified; D72.829 Elevated white blood cell count, unspecified; F32.9 Major depressive disorder, single episode, unspecified; Z20.822 Contact with and (suspected) exposure to COVID-19; Z79.899 Other long term (current) drug therapy
CPT/HCPCS: 36415; 72170; 80048; 85025; 86850; 86900; 86901; 87635; 87640; 87641; 88304; 88311; 93005; 97110; 97116; 97162; 97165; 97530; 97535; C1776; J0131; J0690; J1100; J1170; J2250; J2405; J3010

== ENCOUNTER → 2020-09-03 12:31 | Outpatient (BNVA) | payer OTHER, SELFPAY | PROVIDERS: PCP Internal Medicine; Visit Provider Physician Assistant | DX: Z96.642 Presence of left artificial hip joint (principal); M16.12 Unilateral primary osteoarthritis, left hip; M54.5 Low back pain; Z91.040 Latex allergy status | CPT/HCPCS: 99212 ==

== ENCOUNTER 2020-10-01 08:30 | Outpatient (REF) | payer OTHER, SELFPAY ==
--- NOTE | ~2020-10-01 | XR_ITS ---
EXAMINATION: XR PELVIS CLINICAL INFORMATION: Hip pain COMPARISON: Previous x-ray most recent 08/18/2020 TECHNIQUE: AP view of the pelvis. FINDINGS: There are bilateral hip replacements in satisfactory position. No fracture, dislocation or x-ray evidence of seen. Bones of the pelvis are unremarkable. There are degenerative changes of visualized lower lumbar spine. Soft tissues are unremarkable. XR/XR pelvis 1-2V IMPRESSION: Satisfactory appearance of bilateral hip replacements.
== END 2020-10-01 08:31 | disposition home or self-care (01) ==
LOC: HO.XRAY 08:30
PROVIDERS: PCP Internal Medicine; Visit Provider Orthopaedic Surgery
DX: M25.552 Pain in left hip (principal); M25.562 Pain in left knee; Z96.642 Presence of left artificial hip joint
CPT/HCPCS: 72170; 99212

== ENCOUNTER 2021-09-30 06:29 | Outpatient (REF) | payer OTHER, SELFPAY | END 2021-09-30 06:30 | disposition home or self-care (01) | LOC: HO.HOSX 06:29 | PROVIDERS: Visit Provider Orthopaedic Surgery | DX: Z13.89 Encounter for screening for other disorder (principal) ==

== ENCOUNTER 2022-03-28 09:05 | Outpatient (REF) | payer OTHER, SELFPAY | END 2022-03-28 09:06 | disposition home or self-care (01) | LOC: HO.HOSX 09:05 | PROVIDERS: Visit Provider Orthopaedic Surgery | DX: Z13.89 Encounter for screening for other disorder (principal) ==

== ENCOUNTER 2022-04-14 16:56 | Outpatient (REF) | payer OTHER, SELFPAY ==
--- NOTE | ~2022-04-14 | XR_ITS ---
EXAMINATION: XR KNEE AP STANDING, BILATERAL XR KNEE, LEFT CLINICAL INFORMATION: Pain left knee. COMPARISON: None TECHNIQUE: AP bilateral knee: Left knee 2 views. FINDINGS: AP BILATERAL KNEE: There is right knee genu valgus deformity and left knee genu varus deformity. There is loss of joint space in the medial compartment right knee and lateral compartment left knee with moderate periarticular spurring in the lateral compartments of both knees. No visible acute fracture or loose body seen. No abnormal suprapatellar joint effusion seen. LEFT KNEE: There is loss of patellofemoral compartment joint space with superior and inferior periarticular spurring. There is mild suprapatellar joint effusion. No loose bodies. No visible acute fracture or dislocation. XR/XR knee LT 2V IMPRESSION: 1. Right lateral genu valgus and left knee genu varus deformity. 2. Degenerative arthritic changes medial and patellofemoral compartment left knee with periarticular spurring in the lateral compartment right knee. There is mild suprapatellar joint effusion left knee. 3. No visible acute fracture or dislocation seen.
--- NOTE | ~2022-04-14 | XR_ITS ---
EXAMINATION: XR KNEE AP STANDING, BILATERAL XR KNEE, LEFT CLINICAL INFORMATION: Pain left knee. COMPARISON: None TECHNIQUE: AP bilateral knee: Left knee 2 views. FINDINGS: AP BILATERAL KNEE: There is right knee genu valgus deformity and left knee genu varus deformity. There is loss of joint space in the medial compartment right knee and lateral compartment left knee with moderate periarticular spurring in the lateral compartments of both knees. No visible acute fracture or loose body seen. No abnormal suprapatellar joint effusion seen. LEFT KNEE: There is loss of patellofemoral compartment joint space with superior and inferior periarticular spurring. There is mild suprapatellar joint effusion. No loose bodies. No visible acute fracture or dislocation. XR/XR knee standing BI IMPRESSION: 1. Right lateral genu valgus and left knee genu varus deformity. 2. Degenerative arthritic changes medial and patellofemoral compartment left knee with periarticular spurring in the lateral compartment right knee. There is mild suprapatellar joint effusion left knee. 3. No visible acute fracture or dislocation seen.
== END 2022-04-14 16:57 | disposition home or self-care (01) ==
LOC: HO.HOSX 16:56
PROVIDERS: Visit Provider Orthopaedic Surgery
DX: M17.12 Unilateral primary osteoarthritis, left knee (principal)
CPT/HCPCS: 73560; 73565; 99212

== ENCOUNTER → 2022-06-27 13:53 | Outpatient (BNVA) | payer OTHER, SELFPAY | PROVIDERS: PCP Internal Medicine; Visit Provider Orthopaedic Surgery ==

== ENCOUNTER → 2022-07-21 11:34 | Outpatient (BNVA) | payer OTHER, SELFPAY | PROVIDERS: PCP Internal Medicine; Visit Provider Physician Assistant | DX: M17.12 Unilateral primary osteoarthritis, left knee (principal) | CPT/HCPCS: 99212 ==

== ENCOUNTER 2022-07-26 06:11 | Inpatient (IN) | payer OTHER, SELFPAY ==
[2022-07-19 12:13] VITALS: BP 123/70; PULSE 96; RESP 16; O2SAT 95; BMI 30.1
[2022-07-19 15:23] LABS: MRSA Nasal PCR NEGATIVE (Negative); SA Nasal PCR NEGATIVE (Negative)
--- NOTE | 2022-07-25 09:54 | HO.ANESPROP2 ---
Documented by User: Alesia Solorio NP 07/25/22 09:57 HPI - Anesthesia Eval Consult details Narrative: 72yo F for Left Knee Replacement Total PCP cleared s/p bilat total hips PMFSH Active Problems Active Problems: All Active Problems (Updated 04/14/22 @ 13:09 by Valdemar De Santiago MD) S/P total hip arthroplasty (Acute) Arthritis of left knee (Acute) Past Medical History Medical History Anxiety Arthritis Arthritis of left knee Depressive disorder Low back pain Lyme disease Osteoarthritis of left hip Family History Family history of problems with anesthesia: No Surgical History Surgical History History of cataract removal with insertion of prosthetic lens History of tooth extraction History of total left hip replacement History of total right hip arthroplasty (~03/27/18) History of Problems with Anesthesia: No Social History Social History Are you a primary behavioral health care manager to a significant other at home: No Do you presently have visiting nurse or other home services: No Patient Tobacco Use Status: Never used Tobacco service: No Current occupational status: retired [employer] Allergies Allergy/AdvReac Type Severity Reaction Status Date / Time latex [LATEX] Allergy Severe RASH Verified 07/26/22 06:29 Home Medications Medication Instructions Recorded Confirmed Last Taken Type amitriptyline 50 mg tablet 50 mg PO BEDTIME 07/20/20 07/21/22 07/25/22 History diazepam 5 mg tablet 5 mg PO DAILY PRN Anxiety 07/20/20 07/21/22 07/26/22 04:45 History paroxetine HCl 20 mg tablet 20 mg PO DAILY 07/20/20 07/21/22 07/26/22 04:45 History Exam Exam Date and Time: July 25, 2022 0954 Height,Weight and Vital Signs: Height 5 ft 8 in Weight 89.811 kg Last Vital Signs Pulse 96 07/19/22 12:13 Resp 16 07/19/22 12:13 BP 123/70 07/19/22 12:13 Pulse Ox 95 07/19/22 12:13 O2 Del Method Room Air 07/19/22 12:13 Pertinent Lab Results Pertinent Lab Results: Laboratory Tests 07/19/22 07/19/22 12:30 13:05 Nasal Screen MRSA (PCR) NEGATIVE Nasal S. aureus Screen NEGATIVE Nasal MRSA/S.aureus Interp SEE NOTE Blood Type O Positive Antibody Screen NEGATIVE CBC and BMP 07/15/22 from outside lab wnl Narrative Narrative: EKG 07/15/22 SR @ 83 No change from 2020 Assessment and Plan Assessment Anesthesia Assessment: Chart Reviewed Final Anesthetic Review Family History of Problems with Anesthesia: No History of Problems with Anesthesia: No Documented by User: Luis Blount MD 07/26/22 13:37 PMFSH Past Medical History Medical History Anxiety Arthritis Arthritis of left knee Depressive disorder Low back pain Lyme disease Osteoarthritis of left hip Functional capacity: independent ambulation Surgical History Surgical History History of cataract removal with insertion of prosthetic lens History of tooth extraction History of total left hip replacement History of total right hip arthroplasty (~03/27/18) Social History Social History Are you a primary behavioral health care manager to a significant other at home: No Do you presently have visiting nurse or other home services: No Patient Tobacco Use Status: Never used Tobacco service: No Current occupational status: retired [employer] Allergies Allergy/AdvReac Type Severity Reaction Status Date / Time latex [LATEX] Allergy Severe RASH Verified 07/26/22 06:29 Home Medications Medication Instructions Recorded Confirmed Last Taken Type amitriptyline 50 mg tablet 50 mg PO BEDTIME 07/20/20 07/21/22 07/25/22 History diazepam 5 mg tablet 5 mg PO DAILY PRN Anxiety 07/20/20 07/21/22 07/26/22 04:45 History paroxetine HCl 20 mg tablet 20 mg PO DAILY 07/20/20 07/21/22 07/26/22 04:45 History Exam Airway Mallampati Class: IV Neck ROM: Full Loose/Missing/Broken Teeth: Yes (poor dentition , fillings , caps ) Assessment and Plan Assessment Anesthesia Assessment: Anesthesia Plan Discussed Final Anesthetic Review NPO: Yes ASA Class: III Final Preanesthetic Review: Meds/Allgs Chart Reviewed, Consent Obtained/Reviewed and Anes Risks/Benef Reviewed Patient Risk: Intermediate Procedure Risk: Intermediate Assessment/Block/Sedation in SS: Assess/Block/Sedation-SS Anesthetic Plan Anesthetic Plan: Spinal and Regional Block Disposition: Standard PACU
[2022-07-26] VITALS (28 sets, daily range): BP systolic 67–169; BP diastolic 26–92; PULSE 52–109; RESP 11–20; TEMP 36.1–37.3; O2SAT 93–97
--- NOTE | ~2022-07-26 | XR_ITS ---
EXAMINATION: XR KNEE, LEFT CLINICAL INFORMATION: Left TKA COMPARISON: Left knee 04/14/2022 TECHNIQUE: Two views of the left knee. FINDINGS: Status post left total knee arthroplasty with prosthetic components in satisfactory alignment. Immediate postoperative changes with surgical raulito along the anterior skin and gas and fluid in the suprapatellar joint space is noted. XR/XR knee LT 2V IMPRESSION: Status post left total knee arthroplasty with prosthetic components in satisfactory alignment. Immediate postoperative changes are noted. .
[2022-07-26 06:43] LABS: COVID-19 Test Negative (Negative); IDNOW Serial# 16C4AD1C
[2022-07-26 06:45] LABS: Hematocrit 43.4 % (37.0-47.0); Hemoglobin 13.9 g/dl (12.0-16.0)
[2022-07-26] MEDS: Lactated Ringers 1,000 ML 100 ML IVCONT ×3 (07:07→23:05)
--- NOTE | 2022-07-26 07:42 | MHC.SHP ---
Pre-Procedural Eval Section A Date of Service: 07/26/22 The patient is an INPATIENT: No Changes since office visit: No Cold of Flu in the past 2 weeks, No New Medical Problems, No Changes in Medication and No Patient answered all questions The History & Physical has been completed within 30 days and I have reviewed it.: Yes Section B Chief Complaint: Unilateral primary osteoarthritis, left knee Allergies: Allergies Allergy/AdvReac Type Severity Reaction Status Date / Time latex [LATEX] Allergy Severe RASH Verified 07/26/22 06:29 Plan I have reviewed the history and physical and performed a pertinent physical examination on my patient. No changes have occurred unless specified. Time Spent With Patient Time: Total time managing care of this patient today ____ minutes.
--- NOTE | 2022-07-26 09:50 | PHA.MEDREC ---
Pharmacy Consult ? Medication Reconciliation Pharmacy has completed the medication reconciliation. Pharmacy has reviewed the med rec done by short stay nursing.
[2022-07-26] MEDS: Acetaminophen 325 MG TABLET 650 MG PO ×2 (10:34→20:24)
[2022-07-26] MEDS: oxyCODONE HCl Immed Release 5 MG TABLET PO (10:35)
[2022-07-26] MEDS: HYDROmorphone HCl 0.5 MG/0.5 ML SYRINGE 0.25 MG IVPUSH (10:56)
--- NOTE | 2022-07-26 11:18 | P.BOP_ITS ---
Brief Operative Note Date of Service: 07/26/22 Pre-op diagnosis: Left knee OA Post-op diagnosis: same Procedure: Left TKA Implants: [place] cemented posterior stabilized 07/19/12 Surgeon: Valdemar eD Santiago MD Anesthesia: regional and spinal Was an Grain Scooper used for this Procedure?: Yes Grain Scooper: Francisca Do Estimated blood loss (mL): 200 IV fluids (mL): 1,000 Pathology: other Condition: stable Disposition: PACU
--- NOTE | 2022-07-26 13:47 | HO.PM.IMCN ---
History of Present Illness Data of Consult Service Date: 07/26/22 Requesting physician: Valdemar De Santiago Primary Care Provider: Vamsi Loco MD Review of Systems Review of Systems: Denies any recent fever chills or decrease in appetite respiratory denies any shortness of breath coverage production cardiovascular denied chest pain gastrointestinal denies any dysphagia abdominal pain nausea vomiting or diarrhea genitourinary denies any dysuria frequency or hematuria musculoskeletal denies any joint pain or swelling neuropsych denies any weakness or seizures all other systems reviewed are negative [facility] Medical History (Updated 07/26/22 @ 13:51 by May Hammond NP) Anxiety Arthritis Depressive disorder Low back pain Lyme disease Osteoarthritis of left hip Functional capacity: independent ambulation Surgical History History of cataract removal with insertion of prosthetic lens History of tooth extraction History of total left hip replacement History of total right hip arthroplasty (~03/27/18) Social History Are you a primary care clinician to a significant other at home: No Do you presently have visiting nurse or other home services: No Patient Tobacco Use Status: Never used Tobacco service: No Current occupational status: retired [employer] Allergies Allergy/AdvReac Type Severity Reaction Status Date / Time latex [LATEX] Allergy Severe RASH Verified 07/26/22 06:29 Active Medications: Current Medications Acetaminophen (Acetaminophen 325 Mg Tablet) 650 mg PO Q6H PRN PRN Reason: Pain, Mild (Pain Scale 1-3) Last Admin: 07/26/22 10:34 Dose: 650 mg Amitriptyline HCl (Amitriptyline Hcl 50 Mg Tablet) 50 mg PO BEDTIME FRANDY Aspirin (Aspirin 325 Mg Tablet) 325 mg PO BID FRANDY Celecoxib (Celecoxib 200 Mg Capsule) 200 mg PO BID FRANDY Diazepam (Diazepam 5 Mg Tablet) 5 mg PO DAILY PRN PRN Reason: Anxiety Docusate Sodium (Docusate Sodium 100 Mg Capsule) 100 mg PO BID FRANDY Hydromorphone HCl (Hydromorphone Hcl 0.5 Mg/0.5 Ml Syringe) 0.25 mg IVPUSH Q4H PRN; Protocol PRN Reason: Pain, Severe (Pain Scale 7-10) Lactated Ringer's (Lr) 1,000 mls @ 100 mls/hr IVCONT .Q10H FRANDY Stop: 07/27/22 09:38 Cefazolin Sodium/Dextrose (Ancef) 2 gm in 50 mls @ 100 mls/hr IV POSTOP ONE Stop: 07/26/22 14:02 Ondansetron HCl (Ondansetron Hcl 4 Mg/2 Ml Vial) 4 mg IVPUSH Q8H PRN PRN Reason: Nausea and Vomiting Oxycodone HCl (Oxycodone Hcl Immed Release 5 Mg Tablet) 5 mg PO Q4H PRN PRN Reason: Pain, Moderate (Pain Scale 4-6 Last Admin: 07/26/22 10:35 Dose: 5 mg Oxycodone HCl (Oxycodone Hcl Er 10 Mg Tab.Er.12h) 10 mg PO BID [facility] Paroxetine HCl (Paroxetine Hcl 20 Mg Tablet) 20 mg PO DAILY [facility] Sodium Chloride (0.9 % Sodium Chloride Flush 3 Ml Syringe) 3 ml IVFLUSH QSHIFT [facility] Home Medications Medication Instructions Recorded Confirmed Last Taken Type amitriptyline 50 mg tablet 50 mg PO BEDTIME 07/20/20 07/21/22 07/25/22 History diazepam 5 mg tablet 5 mg PO DAILY PRN Anxiety 07/20/20 07/21/22 07/26/22 04:45 History paroxetine HCl 20 mg tablet 20 mg PO DAILY 07/20/20 07/21/22 07/26/22 04:45 History Physical Exam Vital Signs and Narrative: Vital Signs: Last Vital Signs Temp 97.1 F 07/26/22 12:49 Pulse 84 07/26/22 12:49 Resp 16 07/26/22 12:49 BP 139/71 07/26/22 12:49 Pulse Ox 96 07/26/22 12:49 O2 Del Method Room Air 07/26/22 13:04 O2 Flow Rate 2 07/26/22 10:07 BMI result Body Mass Index 30.1 Results Labs 07/26/22 06:31 Labs: Laboratory Results - last 24 hr 07/26/22 06:15 COVID-19 (ARGENIS) Negative COVID-19 Clin Com See Note Assessment and Plan Time Spent With Patient Time: Total time managing care of this patient today ____ minutes.
--- NOTE | 2022-07-26 13:49 | P.CONHOSP_ITS ---
History of Present Illness Data of Consult Service Date: 07/26/22 Requesting physician: Francisca Do Primary Care Provider: Vamsi Loco MD [facility] Reason for consult: medical management 72-year-old female with history of anxiety and depression, low back pain, and osteoarthritis admitted to Orthopedic surgery for management of osteoarthritis of the left knee s/p TKA with consult placed to hospitalist Medicine for medical management. The patient reports depression anxiety symptoms have been well controlled on paroxetine and amitriptyline. She does typically need to take her diazepam at least once a day but denies any anxiety in this moment. She is reporting some mild neuropathic pain in the left knee but is otherwise comfortable and has no complaints. She reports only occasional alcohol use, denies smoking or illicit drug use. She did experience post-operative hypotension with BP 67/26 following dilaudid administration, but blood pressure has remained stable since arrival to the floor at 139/71. Review of Systems Review of Systems: General: No fevers, malaise, unintentional weight loss HEENT: No blurred vision, diplopia. No sore throat, nasal congestion, rhinorrhea, sinus pain, ear pain Cardiovascular: No chest pain, palpitations, or leg edema Respiratory: No shortness of breath, wheezing, cough GI: No abdominal pain, nausea, vomiting, diarrhea, constipation, melena, h ematochezia : No dysuria, hematuria, increased urinary frequency, decreased urinary output MSK: No myalgia, back pain. +left knee pain Neuro: No headaches, weakness, paresthesias Skin: No rashes or lesions [facility] Medical History Anxiety Arthritis Depressive disorder Low back pain Lyme disease Osteoarthritis of left hip Functional capacity: independent ambulation Surgical History History of cataract removal with insertion of prosthetic lens History of tooth extraction History of total left hip replacement History of total right hip arthroplasty (~03/27/18) Social History Are you a primary physician primary care sports medicine to a significant other at home: No Do you presently have visiting nurse or other home services: No Patient Tobacco Use Status: Never used Tobacco service: No Current occupational status: retired Meds Allergies Allergy/AdvReac Type Severity Reaction Status Date / Time latex [LATEX] Allergy Severe RASH Verified 07/26/22 06:29 Active Medications: Current Medications Acetaminophen (Acetaminophen 325 Mg Tablet) 650 mg PO Q6H PRN PRN Reason: Pain, Mild (Pain Scale 1-3) Last Admin: 07/26/22 10:34 Dose: 650 mg Amitriptyline HCl (Amitriptyline Hcl 50 Mg Tablet) 50 mg PO BEDTIME [facility] Aspirin (Aspirin 325 Mg Tablet) 325 mg PO BID [facility] Celecoxib (Celecoxib 200 Mg Capsule) 200 mg PO BID [facility] Diazepam (Diazepam 5 Mg Tablet) 5 mg PO DAILY PRN PRN Reason: Anxiety Docusate Sodium (Docusate Sodium 100 Mg Capsule) 100 mg PO BID [facility] Hydromorphone HCl (Hydromorphone Hcl 0.5 Mg/0.5 Ml Syringe) 0.25 mg IVPUSH Q4H PRN; Protocol PRN Reason: Pain, Severe (Pain Scale 7-10) Lactated Ringer's (Lr) 1,000 mls @ 100 mls/hr IVCONT .Q10H [facility] Stop: 07/27/22 09:38 Last Admin: 07/26/22 13:48 Dose: 100 mls/hr Cefazolin Sodium/Dextrose (Ancef) 2 gm in 50 mls @ 100 mls/hr IV POSTOP ONE Stop: 07/26/22 14:02 Ondansetron HCl (Ondansetron Hcl 4 Mg/2 Ml Vial) 4 mg IVPUSH Q8H PRN PRN Reason: Nausea and Vomiting Oxycodone HCl (Oxycodone Hcl Immed Release 5 Mg Tablet) 5 mg PO Q4H PRN PRN Reason: Pain, Moderate (Pain Scale 4-6 Last Admin: 07/26/22 10:35 Dose: 5 mg Oxycodone HCl (Oxycodone Hcl Er 10 Mg Tab.Er.12h) 10 mg PO BID [facility] Paroxetine HCl (Paroxetine Hcl 20 Mg Tablet) 20 mg PO DAILY [facility] Sodium Chloride (0.9 % Sodium Chloride Flush 3 Ml Syringe) 3 ml IVFLUSH QSHIFT [facility] Home Medications Medication Instructions Recorded Confirmed Last Taken Type amitriptyline 50 mg tablet 50 mg PO BEDTIME 07/20/20 07/21/22 07/25/22 History diazepam 5 mg tablet 5 mg PO DAILY PRN Anxiety 07/20/20 07/21/22 07/26/22 04:45 History paroxetine HCl 20 mg tablet 20 mg PO DAILY 07/20/20 07/21/22 07/26/22 04:45 History Physical Exam Vital Signs and Narrative: Vital Signs: Last Vital Signs Temp 97.1 F 07/26/22 12:49 Pulse 84 07/26/22 12:49 Resp 16 07/26/22 12:49 BP 139/71 07/26/22 12:49 Pulse Ox 96 07/26/22 12:49 O2 Del Method Room Air 07/26/22 13:04 O2 Flow Rate 2 07/26/22 10:07 BMI result Body Mass Index 30.1 Constitutional - Awake and Alert, No apparent distress Eyes - PERRLA, EOMI Cardiovascular - S1S2, RRR, No edema Respiratory - Normal lung expansion, Normal respiratory effort, No respiratory distress, CTA bilaterally Gastrointestinal - NT / ND; +BS; No rebound or guarding Extremities - no calf tenderness bilaterally, no swelling Musculoskeletal - post-operative compression wrap in place left knee Skin - Warm/Dry Neurological - Alert & oriented x3 Psychological - Appropriate affect Results Labs 07/26/22 06:31 Labs: Laboratory Results - last 24 hr 07/26/22 06:15 COVID-19 (ARGENIS) Negative COVID-19 Clin Com See Note Assessment and Plan (1) S/P total hip arthroplasty: Status: Acute (2) Arthritis of left knee: Status: Acute Plan 72-year-old female with history of anxiety and depression, low back pain, and osteoarthritis admitted to Orthopedic surgery for management of osteoarthritis of the left knee s/p TKA with consult placed to hospitalist Medicine for medical management. #osteoarthritis left knee s/p TKA POD 0 -plan per ortho surgery #Depression/anxiety -continue paxil, amitriptyline -valium prn #Post-operative hypotension -following dilaudid administration -resolved, bp stable since arrival to [facility] -Monitor bp closely -avoid antihypertensive agents -Pain management per ortho surgery Thank you for allowing me to participate in this consult. Signing off at this time. Please do not hesitate to call for further questions. Time Spent With Patient Time: Total time managing care of this patient today ____ minutes.
[2022-07-26] MEDS: ceFAZolin Sodium/Dextrose,Iso 2 GM/50 ML PIGGYBACK IV (14:06)
[2022-07-26] MEDS: Amitriptyline HCl 50 MG TABLET PO (20:21)
[2022-07-26] MEDS: Docusate Sodium 100 MG CAPSULE PO (20:22)
[2022-07-26] MEDS: oxyCODONE HCl ER 10 MG TAB.ER.12H PO (20:23)
[2022-07-26] MEDS: Celecoxib 200 MG CAPSULE PO (20:24)
[2022-07-26] MEDS: ondansetron HCL 4 MG/2 ML VIAL IVPUSH (20:29)
[2022-07-26] MEDS: diazePAM 5 MG TABLET PO (20:32)
[2022-07-26] MEDS: 0.9 % Sodium Chloride Flush 3 ML SYRINGE IVFLUSH (20:33)
[2022-07-27] VITALS (7 sets, daily range): BP systolic 102–127; BP diastolic 50–70; PULSE 95–114; RESP 16–18; TEMP 36.4–37.4; O2SAT 93–97
[2022-07-27] MEDS: Acetaminophen 325 MG TABLET 650 MG PO ×2 (03:29→19:58)
[2022-07-27] MEDS: oxyCODONE HCl Immed Release 5 MG TABLET PO ×4 (03:30→20:00)
[2022-07-27 06:08] LABS: MANUAL DIFF FLAG NO
[2022-07-27 06:14] LABS: Basophils Percent Auto 0.2 % (0-2); Eosinophils Absolute Auto 0.1 X10*3/uL (0.0-0.4); Eosinophils Percent Auto 0.6 % (0-4); Hematocrit 28.5 % (37.0-47.0); Hemoglobin 9.5 g/dl (12.0-16.0); Imm Gran Abs Auto 0.07 X10*3/uL (0.00-0.03); Imm Gran Pct Auto 0.7 % (0.0-0.4); Lymphocytes Absolute Auto 1.6 X10*3/uL (1.2-4.9); Lymphocytes Percent Auto 16.1 % (20-40); Mean Corpuscular HGB Conc 33.3 g/dl (31.0-35.0); Mean Corpuscular Hemoglobin 29.7 pg (27.0-33.0); Mean Corpuscular Volume 89.1 fL (80.0-98.0); Mean Platelet Volume 10.9 fL (9.4-12.3); Monocytes Absolute Auto 1.2 X10*3/uL (0.1-1.2); Monocytes Percent Auto 11.7 % (2-11); Neutrophils Absolute Auto 7.1 x10*3/uL (2.0-8.3); Neutrophils Percent Auto 70.7 % (45-73); Platelet Count 212 X10*3/uL (160-400); Red Cell Distribution Width 13.2 % (11.0-16.0); White Blood Count 10.1 X10*3/uL (4.8-10.8)
[2022-07-27 06:36] LABS: Anion Gap 11 (12-20); Blood Urea Nitrogen 8 mg/dL (9-16); Calcium 8.6 mg/dL (8.4-10.2); Carbon Dioxide 23 mmol/L (22-29); Chloride 102 mmol/L (96-108); Creatinine Clr Calc Pharmacy 96.2; Estimated Glomerular Filt Rate > 60; Glucose Fasting 131 mg/dL (60-99); Potassium 3.6 mmol/L (3.3-5.1); Sodium 132 mmol/L (135-145)
--- NOTE | 2022-07-27 08:04 | PM.PNORT ---
Subjective Subjective Date of Service: 07/27/22 Interval history: pod 1 status post right TKA with Dr. De Santiago. Patient is resting comfortably in bed. No overnight events. Pain is well managed. No additional complaints. Physical Exam Vital Signs: Vital Signs: Last Vital Signs Temp 97.9 F 07/27/22 07:38 Pulse 102 H 07/27/22 07:43 Resp 18 07/27/22 07:38 BP 127/61 07/27/22 07:43 Pulse Ox 93 07/27/22 07:43 O2 Del Method Room Air 07/27/22 07:38 O2 Flow Rate 2 07/26/22 10:07 BMI result Body Mass Index 30.1 Const: General: cooperative, healthy appearing and no acute distress Resp: Effort & Inspection: normal respiratory effort and able to speak in complete sentences Cardio: Rate: regular rate Peripheral pulses: Peripheral pulses 2+ throughout GI: Palpation (GI): Soft to palpation Skin: Lesions: no lesions Rashes: no rashes Extrem: Other: Right knee Aquacel dressing is clean dry and intact. Able to dorsiflex and plantar flex. NVI. Procedures Date of Service Date of Service: 07/27/22 Progress Note: A&P Assessment and plan (1) Status post total right knee replacement: Status: Acute Plan Continue pain mgmnt Begin ASA for dvt ppx begin PT for RTKA Dispo planning-Pending PT eval, pain mgmnt Time Spent With Patient Time: Total time managing care of this patient today ____ minutes. Quality Stroke Does the patient have a stroke diagnosis?: No VTE Prior VTE?: No VTE Risk Level:: Medical - moderate - high VTE Device Contraindication: N/A - Device Ordered VTE Drug Contraindication: N/A - Med Ordered
[2022-07-27] MEDS: Docusate Sodium 100 MG CAPSULE PO ×2 (08:23→19:58)
[2022-07-27] MEDS: PARoxetine HCL 20 MG TABLET PO (08:24)
[2022-07-27] MEDS: Aspirin 325 MG TABLET PO ×2 (08:24→19:57)
[2022-07-27] MEDS: Celecoxib 200 MG CAPSULE PO ×2 (08:24→19:58)
[2022-07-27] MEDS: Lactated Ringers 1,000 ML 100 ML IVCONT (08:25)
[2022-07-27] MEDS: oxyCODONE HCl ER 10 MG TAB.ER.12H PO ×2 (08:25→19:57)
--- NOTE | 2022-07-27 11:13 | MHC.CM.PN ---
pt lives with her is covid vax has own ride home requesting hvns when dcd
--- NOTE | 2022-07-27 12:51 | HO.POSTANES ---
Post Anesthesia Evaluation Post Anesthesia Evaluation Vital Signs: Vital Signs Temp Pulse Resp BP Pulse Ox O2 Del Method 07/27/22 07:43 102 H 127/61 93 07/27/22 07:38 97.9 F 102 H 18 127/61 93 Room Air 07/27/22 03:56 97.5 F 95 16 104/50 L 94 Room Air Anesthesia: Spinal and Nerve Block Mental Status: Awake Pain Control: Satisfactory Nausea/Vomiting: None Hydration: Adequate Anesthesia-Related Issues: No Anes. Related Issues
[2022-07-27] MEDS: Amitriptyline HCl 50 MG TABLET PO (19:58)
[2022-07-27] MEDS: diazePAM 5 MG TABLET PO (20:00)
[2022-07-27] MEDS: 0.9 % Sodium Chloride Flush 3 ML SYRINGE IVFLUSH (20:01)
[2022-07-28 03:26] VITALS: BP 107/56; PULSE 88; RESP 16; TEMP 36.2; O2SAT 96
[2022-07-28] MEDS: Acetaminophen 325 MG TABLET 650 MG PO (05:05)
[2022-07-28] MEDS: oxyCODONE HCl Immed Release 5 MG TABLET PO (05:05)
[2022-07-28 06:16] LABS: MANUAL DIFF FLAG NO
[2022-07-28 06:19] LABS: Basophils Percent Auto 0.2 % (0-2); Eosinophils Absolute Auto 0.2 X10*3/uL (0.0-0.4); Eosinophils Percent Auto 1.5 % (0-4); Hematocrit 26.8 % (37.0-47.0); Hemoglobin 8.8 g/dl (12.0-16.0); Imm Gran Abs Auto 0.05 X10*3/uL (0.00-0.03); Imm Gran Pct Auto 0.5 % (0.0-0.4); Lymphocytes Absolute Auto 1.9 X10*3/uL (1.2-4.9); Lymphocytes Percent Auto 19.4 % (20-40); Mean Corpuscular HGB Conc 32.8 g/dl (31.0-35.0); Mean Corpuscular Hemoglobin 29.3 pg (27.0-33.0); Mean Corpuscular Volume 89.3 fL (80.0-98.0); Mean Platelet Volume 10.4 fL (9.4-12.3); Monocytes Percent Auto 10.2 % (2-11); Neutrophils Absolute Auto 6.7 x10*3/uL (2.0-8.3); Neutrophils Percent Auto 68.2 % (45-73); Platelet Count 183 X10*3/uL (160-400); Red Cell Distribution Width 13.2 % (11.0-16.0); White Blood Count 9.8 X10*3/uL (4.8-10.8)
[2022-07-28 06:49] LABS: Anion Gap 11 (12-20); Blood Urea Nitrogen 8 mg/dL (9-16); Calcium 8.7 mg/dL (8.4-10.2); Carbon Dioxide 23 mmol/L (22-29); Chloride 104 mmol/L (96-108); Creatinine Clr Calc Pharmacy 91.7; Estimated Glomerular Filt Rate > 60; Glucose Fasting 149 mg/dL (60-99); Sodium 134 mmol/L (135-145)
[2022-07-28 06:55] VITALS: BP 98/54; PULSE 94; RESP 18; TEMP 36.6; O2SAT 92
[2022-07-28 08:27] VITALS: BP 98/54; PULSE 94; O2SAT 92
--- NOTE | 2022-07-28 09:59 | P.DS_ITS ---
DS: Providers Provider Date of Service: 07/28/22 Date of admission: 07/26/22 06:11 Primary care physician: Vamsi Loco MD Consults: 07/26/22 13:33 Consult to Hospitalist Routine Comment: post op medical quality management nurse Provider: Hospitalist Reason For Exam: post op medical management DS: Diagnosis Discharge Diagnosis (1) Status post total right knee replacement: Status: Acute DS: Summary Hospital Course Hospital Course: The patient underwent a successful left total knee arthroplasty on 07/26/22, was transferred to PACU and then to the floor to recover. During their stay, their vitals were stable, afebrile at 98.0. Labs were unremarkable, H/H 8.8/26.8. POD 1 she was started on Aspirin for DVT ppx, they also received Physical Therapy services twice a day. Physical therapy should include gait training, ROM to tolerance and quad strength. He is WBAT. Prior to discharge, his dressing was changed, incision clean dry and intact, new Aquacel dressing applied. The Aquacel dressing shoulder remain intact and dry at all times. Any concerns with the dressing, please contact orthopedic office. No showering. The plan is to be discharged home with VNA services. Time Spent with Patient Time attestation: Total time managing care of this patient today ____ minutes. Discharge coordination time: Less than 30 minutes Quality: Safe Use of Opioids Does Pt have an Active Cancer Diagnosis on the Problem List?: No Quality: Stroke Does the patient have a stroke diagnosis?: No Physical Exam Vital Signs: Vital Signs: Last Vital Signs Temp 98 F 07/28/22 06:55 Pulse 94 07/28/22 08:27 Resp 18 07/28/22 06:55 BP 98/54 L 07/28/22 08:27 Pulse Ox 92 07/28/22 08:27 O2 Del Method Room Air 07/28/22 06:55 O2 Flow Rate 2 07/26/22 10:07 BMI result Body Mass Index 30.1 Const: General: cooperative, healthy appearing and no acute distress Resp: Effort & Inspection: normal respiratory effort and able to speak in complete sentences Cardio: Rate: regular rate Peripheral pulses: Peripheral pulses 2+ throughout GI: Palpation (GI): Soft to palpation Skin: Lesions: no lesions Rashes: no rashes Extrem: Other: Right knee Aquacel dressing is clean dry and intact. Able to dorsiflex and plantar flex. NVI. DS: Data Data Completed and Pending Completed studies during hospitalization [Text1]: Procedures Replacement of Left Hip Joint with Synthetic Substitute, Uncemented, Open Approach (08/18/20) Pending studies at discharge: Pending at discharge 07/26/22 09:04 Surgical [PTH] Routine Labs on day of discharge: Laboratory Results - last 24 hr 07/28/22 07/28/22 05:32 05:32 WBC 9.8 RBC 3.00 L Hgb 8.8 L Hct 26.8 L MCV 89.3 MCH 29.3 MCHC 32.8 RDW 13.2 Plt Count 183 MPV 10.4 Immature Gran % (Auto) 0.5 H Neut % (Auto) 68.2 Lymph % (Auto) 19.4 L [place] % (Auto) 10.2 Eos % (Auto) 1.5 Baso % (Auto) 0.2 Lymph # (Auto) 1.9 [place] # (Auto) 1.0 Eos # (Auto) 0.2 Baso # (Auto) 0.0 Abs Immat Gran (auto) 0.05 H Absolute Neuts (auto) 6.7 Absolute Nucleated RBC 0.000 Nucleated RBC % (auto) 0.0 Sodium 134 L Potassium 4.0 Chloride 104 Carbon Dioxide 23 Anion Gap 11 L BUN 8 L Creatinine 0.64 Estim Creat Clear Calc 91.7 Estimated GFR > 60 Fasting Glucose 149 H Calcium 8.7 Discharge Plan Discharge Anticipated Discharge Date/Time: 07/28/22 09:48 Patient Disposition: Home Health Service Discharge Diagnosis: LT TKA Referrals: Ruchi Sparrow PA-C [Physician Billing Coordinator] - 2 Weeks (08/11/22 12:30 [facility] Orthopedic Surgeons Ruchi Sparrow PA-C) Discharge Medications: New docusate sodium 100 mg Capsule 100 mg PO BID 14 Days Qty: 28 0RF celecoxib 200 mg Capsule 200 mg PO BID 30 Days Qty: 60 0RF aspirin 325 mg Tablet 325 mg PO BID 42 Days Qty: 84 0RF oxycodone 5 mg Tablet 5 mg PO Q4H PRN (Reason: Pain, Moderate (Pain Scale 4-6) 7 Days Qty: 42 0RF Rx Instructions: Partial Fill upon patient request. acetaminophen 325 mg Tablet 650 mg PO Q6H PRN (Reason: Pain, Mild (Pain Scale 1-3)) 30 Days Qty: 240 0RF Continued acetaminophen 325 mg Tablet 650 mg PO Q6H PRN (Reason: Pain, Mild (Pain Scale 1-3)) 30 Days Qty: 240 0RF diazepam 5 mg tablet 5 mg PO DAILY PRN (Reason: Anxiety) paroxetine HCl 20 mg tablet 20 mg PO DAILY amitriptyline 50 mg tablet 50 mg PO BEDTIME Discharge Orders: Discharge Order (Routine); Ordered 07/28/22 Ordered By: Francisca Do Diet: Regular diet Activity on Discharge: Use cane or walker Stand Alone Forms: Patient Portal Discharge page Care Plan Goals: Restore function of joint Health Concerns: none Plan of Treatment: Physical Therapy Pain management DVT prophylaxis Assessment: * Physical Therapy for Total hip arthroplasty: wbat, posterior precautions, gait training, ROM, strength * Limit stair climbing * No showering, no tub bath-keep dressing clean, dry and intact * No driving x6 weeks * Continue Aspirin twice a day x 6 weeks * Follow up with [facility] Orthopedics in 2 weeks: 08/11/22 12:30 [facility] [place] Orthopedic SurgeonsRuchi Sparrow PA-C * --you will also have your first out patient PT eval on the day of your post op appt-so please plan on being in the office that day for an extended period of time.
--- NOTE | 2022-07-28 10:02 | P.F2F_ITS ---
Service Date Service Date: 07/28/22 Encounter Date of encounter: 07/28/22 Reasons for Services Signs and symptoms assessed: diff with ambulation, poor balance. Reason for physical therapy: home safety and mobility, therapeutic exercises, restore joint function, gait/transfer training, ADL training and energy conservation Reason for occupational therapy: home safety and mobility, therapeutic exercises, restore joint function, gait/transfer training, ADL training and energy conservation Overseeing Care: Valdemar De Santiago Homebound: Leaving the home is medically contraindicated at this time without the asist of a device and/or another person due th the listed conditions above and below. Reason homebound: unsteady gait / fall risk, pain with ambulation, poor balance / fall risk and unable to drive Homebound supporting statement: Pt. is considered home bound due to recent surgery. Unable to drive, poor balance, poor gait mechanics. Certification: Based on the above findings, I certify that this patient is confined to the home and needs intermittent senior living care, physical therapy and/or speech therapy, or continues to need occupational therapy. The patient is under my care, and I have initiated the establishment of the plan of care. The patient will be followed by a physician who will periodically review the plan of care. Time Spent With Patient Time: Total time managing care of this patient today ____ minutes.
[2022-07-28] MEDS: Aspirin 325 MG TABLET PO (10:38)
[2022-07-28] MEDS: oxyCODONE HCl ER 10 MG TAB.ER.12H PO (10:39)
[2022-07-28] MEDS: Docusate Sodium 100 MG CAPSULE PO (10:39)
[2022-07-28] MEDS: Celecoxib 200 MG CAPSULE PO (10:39)
[2022-07-28] MEDS: PARoxetine HCL 20 MG TABLET PO (10:40)
--- NOTE | 2022-07-28 10:46 | MHC.CM.PN ---
DP: PT HAS BEEN MEDICALLY CLEARED FOR DC HOME WITH NEW [facility] FOR PT/OT. [facility] UPDATED. RN AWARE. PT HAS OWN RIDE HOME.
[2022-07-28] MEDS: 0.9 % Sodium Chloride Flush 3 ML SYRINGE IVFLUSH (10:50)
--- NOTE | 2022-07-28 15:10 | P.OP_ITS ---
Operative Note Operative Note Date of Service: 07/26/22 Narrative: Date of Service: 07/26/22 Pre-op diagnosis: Left knee OA Post-op diagnosis: same Procedure: Left TKA Implants: Rony cemented posterior stabilized 07/19/12TS/32a Surgeon: Valdemar De Santiago MD Anesthesia: regional and spinal Was an Produce Wrapper used for this Procedure?: Yes Produce Wrapper: Francisca Do Estimated blood loss (mL): 200 IV fluids (mL): 1,000 Pathology: other Condition: stable Disposition: PACU Procedure in detail: The patient was brought to the operating room and prepped and draped in standard sterile fashion. A time-out was called to identify proper site proper procedure proper surgeon and IV antibiotics were administered. 1 g of IV tranexamic acid was administered. I began by making a midline incision to the retinaculum and performed a medial parapatellar arthrotomy. The patella was translated latera lly and the knee was flexed up. This was a valgus knee with lateral comaprtment eburnation. I performed a small medial peel and resected the infrapatellar fat pad. Zach's line was then used to drill my intramedullary femoral guide and my distal femur cut of 10 mm was made in 5 degrees of valgus while protecting the soft tissues. I then measured a # 4 femur and placed my cutting guide and made my anterior posterior and chamfer cuts protecting the soft tissues at all times. I then made my box but removing the PCL. Once I was satisfied with my cuts I turned my attention to the tibia. I removed the meniscus medially and laterally and , using an external cutting guide, in line with the tibial crest and the third ray, I made my distal tibial cut in 0 deg slope of while protecting the PCL the posterior soft tissues at all times. An extension block was used to confirm appropriate amount of bony resection. I then sized a #4tibia and once I was satisfied that there was complete tibial coverage I placed my trial and with the trial femur in place took the knee through range of motion. I was satisfied with the extension and flexion as well as the stability at 0, 30 and 90 degrees. I then turned my attention to the patella where I removed 1 cm from the undersurface of the patella and then trialed a 32a patellar button. Again the knee was taken through range of motion I was satisfied with the tracking. I then returned to the femur and drilled my femoral lug holes and prepared the tibia. A femoral bone plug was placed and the knee was irrigated copiously. I then cemented the patella, tibia and femur in standard fashion while applying axial compression. Once all the cement was dry and the excess was removed I trialed different inserts until I selected a #13TS insert. The final insert was placed and a 3 minutes iodine soak with local TXA was performed. A Werewolf cautery wand was used to maintain hemostasis over the capsule and meniscal beds, the gutters and peripatellar soft tissues. The knee was then closed with a running Quill suture, a 3 0 Vicryl and raulito on the skin. Patient was then placed in sterile dressing and brought to recovery room in stable condition there were no known complications.
== END 2022-07-28 13:04 | disposition home health service (06) | DRG 470 ==
LOC: HO.SSSA 06:18 → HO.S3 12:26
PROVIDERS: Physician Assistant; Admitting Provider Orthopaedic Surgery; PCP Internal Medicine; Visit Provider Orthopaedic Surgery
PROC: 0SRD0J9 Replacement of Left Knee Joint with Synthetic Substitute, Cemented, Open Approach (ICD-10-PCS; CPT 27447; principal; 2022-07-26 07:30)
DX: M17.12 Unilateral primary osteoarthritis, left knee (principal); F41.9 Anxiety disorder, unspecified; F32.A Depression, unspecified; I95.81 Postprocedural hypotension; M54.59 Other low back pain; G89.18 Other acute postprocedural pain; G89.29 Other chronic pain; Z20.822 Contact with and (suspected) exposure to COVID-19; Z91.040 Latex allergy status; Z79.899 Other long term (current) drug therapy
CPT/HCPCS: 36415; 73560; 80048; 85014; 85018; 85025; 86850; 86900; 86901; 87635; 87640; 87641; 88305; 88311; 97110; 97116; 97162; C1713; C1776; J0690; J1170; J2250; J2405; J2795

== ENCOUNTER → 2022-08-11 12:28 | Outpatient (BNVA) | payer OTHER, SELFPAY | PROVIDERS: PCP Internal Medicine; Visit Provider Physician Assistant ==

== ENCOUNTER 2022-09-29 11:04 | Outpatient (REF) | payer OTHER, SELFPAY | END 2022-09-29 11:05 | disposition home or self-care (01) | LOC: HO.HOSX 11:04 | PROVIDERS: Visit Provider Physician Assistant | DX: Z13.89 Encounter for screening for other disorder (principal) ==

== ENCOUNTER 2022-10-03 11:44 | Outpatient (REF) | payer OTHER, SELFPAY ==
--- NOTE | ~2022-10-03 | XR_ITS ---
EXAMINATION: XR KNEE, AP STANDING, BILATERAL XR KNEE, LEFT CLINICAL INFORMATION: Pain. COMPARISON: 07/26/2022 and 04/14/2022. TECHNIQUE: AP standing view of both knees and sunrise patella and lateral views of the left knee. FINDINGS: There is degenerative change of the medial and lateral compartments of the right knee with valgus angulation and marginal spurring. Patient is status post left knee total arthroplasty with prosthetic components appearing in good position. No evidence of hardware failure or loosening. There is a minimal left knee effusion. XR/XR knee standing BI IMPRESSION: Degenerative change of the right knee which is stable. Status post left total knee arthroplasty with prosthetic components unremarkable. Minimal left knee effusion.
--- NOTE | ~2022-10-03 | XR_ITS ---
EXAMINATION: XR KNEE, AP STANDING, BILATERAL XR KNEE, LEFT CLINICAL INFORMATION: Pain. COMPARISON: 07/26/2022 and 04/14/2022. TECHNIQUE: AP standing view of both knees and sunrise patella and lateral views of the left knee. FINDINGS: There is degenerative change of the medial and lateral compartments of the right knee with valgus angulation and marginal spurring. Patient is status post left knee total arthroplasty with prosthetic components appearing in good position. No evidence of hardware failure or loosening. There is a minimal left knee effusion. XR/XR knee LT 2V IMPRESSION: Degenerative change of the right knee which is stable. Status post left total knee arthroplasty with prosthetic components unremarkable. Minimal left knee effusion.
== END 2022-10-03 11:45 | disposition home or self-care (01) ==
LOC: HO.HOSX 11:44
PROVIDERS: Visit Provider Orthopaedic Surgery
DX: M17.11 Unilateral primary osteoarthritis, right knee (principal); Z96.652 Presence of left artificial knee joint
CPT/HCPCS: 73560; 73565; 99212